=== PATIENT | male | born 1985 | race African-American/Black ===

== ENCOUNTER 2019-03-16 20:04 | Emergency (ER) | payer MEDICAID ==
[~2019-03-16] VITALS: Ht 177.8 cm; Wt 84.2 kg
[~2019-03-16 20:04] MED LIST: DARVOCET PO; HYDR-3240 PO
[2019-03-16] MEDS ORDERED: ACETAMINOPHEN 500 MG TABLET ONE ×2 (20:21→20:26)
--- NOTE | 2019-03-16 20:22 | NUR ---
PT STATES "I THINK I HAVE A SPIDER BITE". PT HAS SMALL AREA OF CELLULITIS TO RIGHT LOWER ANKLE. PT UP TO RR WITH STEADY GAIT
--- NOTE | 2019-03-16 20:24 | NUR ---
PT MEDICATED FOR FEVER PAR DEC.
[2019-03-16] MEDS ORDERED: SULFAMETH./TRIMETHOPRIM DS 800MG/160MG TABLET PO ONE (20:30)
[2019-03-16] MEDS ORDERED: IBUPROFEN 600 MG TABLET PO ONE (20:30)
[2019-03-16] MEDS ORDERED: ACETAMINOPHEN 325 MG TABLET PO ONE (20:30)
[2019-03-16] MEDS ORDERED: CEPHALEXIN 500 MG CAPSULE PO ONE (20:30)
[2019-03-16] MEDS ORDERED: ACETAMINOPHEN 500 MG TABLET PO ONE (20:30)
[2019-03-16] MEDS ORDERED: IBUPROFEN 600 MG TABLET ONE (20:34)
[2019-03-16] MEDS ORDERED: CEPHALEXIN 500 MG CAPSULE ONE (20:35)
[2019-03-16] MEDS ORDERED: SULFAMETH./TRIMETHOPRIM DS 800MG/160MG TABLET ONE (20:35)
[2019-03-16 20:37] VITALS: BP 121/65
--- NOTE | 2019-03-16 20:38 | NUR ---
PT MEDICATED PER MAR, MONITORS APPLIED, SIDERAILS UP X2, CALL LIGHT WITHIN REAC, DENIES NEEDS AT THIS TIME
--- NOTE | 2019-03-16 20:51 | NUR ---
PT REFUSING LAB WORK, PT REMOVED ALL MONITORS AND STARTED DRESSING SELF, STATED 'i'M LEAVING", ERP UPDATED, PT SIGNED AMA FORM AND FORM PLACED IN PT'S CHART
== END 2019-03-16 21:04 | disposition left against medical advice (07) ==
LOC: ED 20:39
DX: L03.115 Cellulitis of right lower limb (principal); G89.29 Other chronic pain
CPT/HCPCS: 99284

== ENCOUNTER 2019-04-05 09:30 | Emergency (ER) | payer MEDICAID ==
[~2019-04-05] VITALS: Ht 177.8 cm; Wt 82.0 kg
[2019-04-05 09:45] VITALS: BP 118/76
--- NOTE | 2019-04-05 09:54 | NUR ---
DORSAL RIGHT FOOT PAIN WITH SWELLING. INJURED IT PLAYING [employer] FRIDAY
--- NOTE | 2019-04-05 11:31 | NUR ---
AFTER SPLINT APPLIED AND CRUTCHES PROVIDED BY TECH, PT GIVEN DISCHARGE PAPERS. AMBULATED TO DISCHARGE WINDOW WITH USE OF CRUTCHES, STEADY GAIT
== END 2019-04-05 11:33 | disposition home or self-care (01) ==
LOC: ED 10:43
DX: S90.31XA Contusion of right foot, initial encounter (principal); G43.909 Migraine, unspecified, not intractable, without status migrainosus; Z87.891 Personal history of nicotine dependence; W21.01XA Struck by football, initial encounter; Y93.61 Activity, american tackle football; Y92.321 Football field as the place of occurrence of the external cause; Y99.8 Other external cause status
CPT/HCPCS: 29515; 99283

== ENCOUNTER 2020-01-21 17:12 | Emergency (ER) | payer MEDICAID, OTHER ==
[~2020-01-21] VITALS: Ht 175.3 cm; Wt 84.3 kg
[2020-01-21 17:14] VITALS: BP 138/75
== END 2020-01-21 19:12 | disposition home or self-care (01) ==
LOC: ED 17:31
DX: S16.1XXA Strain of muscle, fascia and tendon at neck level, initial encounter (principal); Z87.891 Personal history of nicotine dependence; R51 Headache; V89.2XXA Person injured in unspecified motor-vehicle accident, traffic, initial encounter; Y93.89 Activity, other specified; Y92.488 Other paved roadways as the place of occurrence of the external cause; Y99.8 Other external cause status
CPT/HCPCS: 72125; 99284